=== PATIENT | male | born 1975 | race African-American/Black ===

== ENCOUNTER 2017-06-02 19:44 | Emergency (ER) | payer OTHER ==
[~2017-06-02] VITALS: Ht 185.4 cm; Wt 86.4 kg
[~2017-06-02 19:44] MED LIST: AUGMENTIN875 MG PO; BACTRIM,SEPT1 TABLET PO; CLEOCIN300 MG PO; INDOCIN25 MG PO; KEFLEX500 MG PO; LORTAB 5-325 M1 EACH PO; MOTRIN600 MG PO; NAPROSYN500 MG PO; PERCOCET 5/31 TABLET PO; TAMSULOSIN HCL0.4 MG PO; ULTRAM50 MG PO
[2017-06-02 20:03] VITALS: BP 124/79
== END 2017-06-02 21:24 | disposition home or self-care (01) ==
LOC: EME 19:44
DX: Z48.01 Encounter for change or removal of surgical wound dressing (principal); L02.212 Cutaneous abscess of back [any part, except buttock and flank]; F17.200 Nicotine dependence, unspecified, uncomplicated
CPT/HCPCS: 99281; 99284

== ENCOUNTER 2017-06-07 16:11 | Emergency (ER) | payer OTHER ==
[~2017-06-07] VITALS: Ht 182.9 cm; Wt 85.0 kg
[2017-06-07] MEDS ORDERED: NAPROSYN500 MG PO (18:00)
[2017-06-07 18:12] VITALS: BP 113/76
== END 2017-06-07 18:13 | disposition home or self-care (01) ==
LOC: RME 16:11 → EME 16:11 → RME 18:13
DX: Z48.01 Encounter for change or removal of surgical wound dressing (principal); L02.212 Cutaneous abscess of back [any part, except buttock and flank]; M25.511 Pain in right shoulder; Z72.0 Tobacco use; Z71.6 Tobacco abuse counseling
CPT/HCPCS: 99281; 99283

== ENCOUNTER 2017-11-22 11:45 | Emergency (ER) | payer OTHER ==
[~2017-11-22] VITALS: Ht 188 cm; Wt 86.5 kg
[2017-11-22] MEDS ORDERED: BACTRIM,SEPT1 TABLET PO (13:12)
[2017-11-22] MEDS ORDERED: FLEXERIL10 MG PO (13:12)
[2017-11-22] MEDS ORDERED: MOTRIN800 MG PO (13:12)
[2017-11-22] MEDS ORDERED: KEFLEX500 MG PO (13:12)
[2017-11-22 13:24] VITALS: BP 125/89
== END 2017-11-22 13:34 | disposition home or self-care (01) ==
LOC: EME 11:45
DX: S13.4XXA Sprain of ligaments of cervical spine, initial encounter (principal); R51 Headache; L03.90 Cellulitis, unspecified; V49.50XA Passenger injured in collision with unspecified motor vehicles in traffic accident, initial encounter; Y92.410 Unspecified street and highway as the place of occurrence of the external cause; F12.90 Cannabis use, unspecified, uncomplicated; Z88.5 Allergy status to narcotic agent
CPT/HCPCS: 99281; 99284